=== PATIENT | female | born 1950 | race African-American/Black ===

== ENCOUNTER 2018-05-05 23:01 | Emergency (ER) | payer OTHER ==
--- NOTE | 2018-05-05 23:17 | PDOC ---
History of Present Illness - General History Source: Patient Exam Limitations: No Limitations - History of Present Illness Initial Comments: 05/05/18 23:43 The patient is a 67 year old female, with a significant past medical history of T2DM, who presents to the emergency department with, 5 days of worsening RUQ pain radiating to her back. She describes her pain as 10/10, sharp pain worsened while lying back, and takes her breath away. As per patient, today she has experienced associated nausea without emesis, decreased PO intake (only water), and constipation. Patient notes seeing her PCP Dr. Gan earlier today who scheduled an ultrasound for 05/07 and advised her to report to the ED for any new or worsening symptoms. She denies recent fevers, chills, headache or dizziness. She denies recent dysuria, frequency, urgency or hematuria. She denies recent chest pain or shortness of breath. Allergies: NKDA Past surgical history: None reported. Social history: Smoker. Denies EtOH use and recreational drug use. Primary Care Physician: Dr. Gan <Delmy Fernandes - Last Filed: 05/05/18 23:47> <Bethanie Maza - Last Filed: 05/06/18 04:24> - General Chief Complaint: Pain, Acute Stated Complaint: RUQ PAIN Time Seen by Provider: 05/05/18 23:06 Past History <Delmy Fernandes - Last Filed: 05/05/18 23:47> <Bethanie Maza - Last Filed: 05/06/18 04:24> - Past Medical History Allergies/Adverse Reactions: Allergies Allergy/AdvReac Type Severity Reaction Status Date / Time No Known Allergies Allergy Verified 05/05/18 23:06 Home Medications: Ambulatory Orders Aspirin 81 mg PO DAILY 05/05/18 Atenolol [Tenormin -] 50 mg PO DAILY 05/05/18 Glimepiride [Amaryl -] 2 mg PO DAILY 05/05/18 Losartan Potassium 25 mg PO DAILY 05/05/18 Lovastatin 20 mg PO DAILY 05/05/18 Metformin HCl [Glucophage] 1,000 mg PO BID 05/05/18 Omeprazole 40 mg PO DAILY 05/05/18 traMADol HCL [Ultram -] 50 mg PO Q8H PRN #12 tablet MDD 2 tabs 05/06/18 Review of Systems - Review of Systems Able to Perform ROS?: Yes Comments:: 05/05/18 23:44 CONSTITUTIONAL: Absent: fever, no chills, no fatigue EYES: Absent: visual changes ENT: Absent: ear pain, no sore throat CARDIOVASCULAR: Absent: chest pain, no palpitations RESPIRATORY: Absent: cough, no SOB GI: Present: RUQ pain. Nausea. Constipation. Absent: no vomiting, no diarrhea GENITOURINARY: Absent: dysuria, no frequency, no hematuria MUSKULOSKELETAL: Absent: back pain, no arthralgia, no myalgia SKIN: Absent: rash NEURO: Absent: headache All Other Systems: Reviewed and Negative <Delmy Fernandes - Last Filed: 05/05/18 23:47> *Physical Exam - Vital Signs Last Vital Signs Temp Pulse Resp BP Pulse Ox 98.6 F 84 18 183/87 H 100 05/05/18 23:32 05/05/18 23:32 05/05/18 23:32 05/05/18 23:32 05/05/18 23:32 - Physical Exam Comments: 05/05/18 23:47 GENERAL: The patient is awake, alert, and fully oriented, in no acute distress. HEAD: Normal with no signs of trauma. EYES: Pupils equal, round and reactive to light, extraocular movements intact, sclera anicteric, conjunctiva clear with no pallor. +ENT: Dry mucous membranes. Ears normal, nares patent, oropharynx clear without exudates. NECK: Normal range of motion, supple without lymphadenopathy, JVD, or masses. LUNGS: Breath sounds equal, clear to auscultation bilaterally. No wheeze/ crackles. HEART: Regular rate and rhythm, normal S1 and S2 without murmur or rub. +ABDOMEN: Positive murphys sign. RUQ tenderness. Soft/nondistended. BS wnl. No guarding or rebound. No palpable masses. No hepatosplenomegaly. EXTREMITIES: Normal range of motion, no edema. No clubbing or cyanosis. No cords, erythema, or tenderness. NEUROLOGICAL: Cranial nerves II through XII grossly intact. Normal speech, normal gait. PSYCH: Normal mood, normal affect. SKIN: Warm, Dry, normal turgor, no rashes or lesions noted. <Delmy Fernandes - Last Filed: 05/05/18 23:47> Moderate Sedation - Procedure Monitoring Vital Signs: Procedure Monitoring Vital Signs Temperature 98.6 F 05/05/18 23:32 Pulse Rate 84 05/05/18 23:32 Respiratory Rate 18 05/05/18 23:32 Blood Pressure 183/87 H 05/05/18 23:32 O2 Sat by Pulse Oximetry (%) 100 05/05/18 23:32 <Delmy Fernandes - Last Filed: 05/05/18 23:47> ED Treatment Course - LABORATORY CBC & Chemistry Diagram: 05/05/18 23:30 05/05/18 23:30 - Medications Given in the ED: ED Medications Discontinued Medications Generic Name Dose Route Start Last Admin Trade Name Larry PRN Reason Stop Dose Admin Ketorolac Tromethamine 30 mg 05/05/18 23:36 05/05/18 23:42 Toradol Injection - IVPUSH 05/05/18 23:37 30 mg ONCE ONE Administration <Delmy Fernandes - Last Filed: 05/05/18 23:47> - LABORATORY CBC & Chemistry Diagram: 05/05/18 23:30 05/05/18 23:30 <Bethanie Maza - Last Filed: 05/06/18 04:24> Progress Note - Progress Note Progress Note: Documentation has been prepared under my direction and personally reviewed by me in its entirety. I attest that this documented accurately reflects all work, treatment, procedures and medical decision making performed by me. <Bethanie Maza - Last Filed: 05/06/18 04:24> Medical Decision Making - Medical Decision Making As noted above, this 67-year-old woman is referred here by her PMD (Dr. Gan) with 5 day history of right upper quadrant pain. She has not had any flank/ right lower quadrant or suprapubic pain. She has had no hematuria/dysuria. No history of gallstones or kidney stones. No fever or vomiting has been present, although the patient has been nauseated and has not eaten much in the last few days. Exam as noted: Patient's tenderness is right upper quadrant/subcostal with a strongly positive Duggan sign. No flank or CVA tenderness is present. Patient received Toradol 30 mg IV; this was minimally effective and morphine 2 mg IV administered. Patient had significant relief in her pain with this medication. Laboratory evaluation (CBC/chemistry profile) is essentially normal except for random glucose of 165 Gallbladder ultrasound performed: Gallbladder and biliary tract is normal. She has widespread hepatic steatosis with mild liver enlargement. Patient will be referred back to for further workup. Although the patient has some enlargement of her liver, the level of her pain suggests that another source may be present. Since patient is not vomiting and had adequate pain relief with morphine, she will be discharged with prescription for tramadol 50 mg up to twice a day as needed for pain prescribed; she is also encouraged to drink fluids as tolerated. She should return to the emergency room if she has worsening of her pain or develops vomiting/fever <Bethanie Maza - Last Filed: 05/06/18 04:24> *DC/Admit/Observation/Transfer - Attestations Scribe Attestion: 05/05/18 23:44 Documentation prepared by Delmy Fernandes, acting as chief medical director for Bethanie Maza MD. <Delmy Fernandes - Last Filed: 05/05/18 23:47> <Bethanie Maza - Last Filed: 05/06/18 04:24> Diagnosis at time of Disposition: Nonalcoholic hepatosteatosis, RUQ abdominal pain - Discharge Dispostion Disposition: HOME Condition at time of disposition: Stable - Prescriptions Prescriptions: traMADol HCL [Ultram -] 50 mg PO Q8H PRN #12 tablet MDD 2 tabs PRN Reason: Severe Pain - Referrals Referrals: Bayron Gan MD [Primary Care Provider] - Call tomorrow - Patient Instructions Printed Discharge Instructions: Nonalcoholic Fatty Liver Disease, Smoking Cessation Additional Instructions: Avoid alcohol Continue medications as prescribed Call tomorrow and follow-up with as determined Tylenol/ibuprofen as needed for mild pain; tramadol as needed for moderate to severe pain Return to ER if you have persistent severe pain/fever/vomiting - Post Discharge Activity
[2018-05-05] MEDS ORDERED: SODIUM CHLORIDE 1,000 ML IV STA (23:18)
[2018-05-05] MEDS ORDERED: KETOROLAC TROMETHAMINE 30 MG/1 ML VIAL IVPUSH ONE (23:36)
[2018-05-05 23:37] VITALS: BP 183/87; PULSE 84; TEMP 98.6; BMI 29.2
[2018-05-05] MEDS ORDERED: KETOROLAC TROMETHAMINE 30 MG/1 ML VIAL ONE (23:37)
[2018-05-05 23:45] LABS: BASO % 2.5 % (0-2.0); EOS % 1.5 % (0-4.5); HEMATOCRIT 39.3 % (32.4-45.2); HEMOGLOBIN 12.9 GM/dl (10.7-15.3); LYMPH % 31.1 % (8-40); MCH 29.5 pg (25.7-33.7); MCHC 32.9 g/dl (32.0-36.0); MEAN CELL VOLUME 89.7 fl (80-96); MEAN PLT VOLUME 8.3 fl (7.5-11.1); MONO % 7.5 % (3.8-10.2); NEUT % 57.4 % (42.8-82.8); PLATELET COUNT 341 K/MM3 (134-434); RBC 4.38 M/mm3 (3.60-5.2); RDW 13.1 % (11.6-15.6); WHITE BLOOD COUNT 7.4 K/mm3 (4.0-10.8)
[2018-05-05 23:52] LABS: ALBUMIN 4.4 g/dl (3.4-5.0); ALK PHOS 81 U/L (45-117); AMYLASE 79 U/L (25-115); ANION GAP 8 MMOL/L (8-16); BILIRUBIN,TOTAL 0.3 mg/dl (0.2-1); BLOOD UREA NITROGEN 8 mg/dl (7-18); CALCIUM 10.8 mg/dl (8.5-10); CHLORIDE 103 mmol/L (98-107); CO2 25 mmol/L (21-32); CREATININE 0.7 mg/dl (0.55-1.3); GLUCOSE,RANDOM 165 mg/dl (74-106); POTASSIUM 4.5 mmol/L (3.5-5.1); SGOT/AST 22 U/L (15-37); SGPT/ALT 20 U/L (13-61); SODIUM 136 mmol/L (136-145); TOT PROT 7.8 g/dl (6.4-8.2)
[2018-05-06] MEDS ORDERED: morphine SULFATE 4 MG/ML VIAL ONE (00:12)
[2018-05-06] MEDS ORDERED: morphine CARPU-JECT 2 MG/1 ML DISP.SYRIN IVPUSH ONE (00:12)
== END 2018-05-06 01:28 | disposition home or self-care (01) ==
LOC: FER 23:01
PROC: 3E0333Z Introduction of Anti-inflammatory into Peripheral Vein, Percutaneous Approach (ICD-10-PCS; principal; 2018-05-05)
PROC: 3E033NZ Introduction of Analgesics, Hypnotics, Sedatives into Peripheral Vein, Percutaneous Approach (ICD-10-PCS; 2018-05-05)
PROC: 3E0337Z Introduction of Electrolytic and Water Balance Substance into Peripheral Vein, Percutaneous Approach (ICD-10-PCS; 2018-05-05)
DX: E88.89 Other specified metabolic disorders (principal); K76.0 Fatty (change of) liver, not elsewhere classified
CPT/HCPCS: 36415; 76705-TC; 80053; 82150; 85025; 99282-25; J7030